=== PATIENT | female | born 1955 | race Caucasian/White ===

== ENCOUNTER 2018-03-24 14:30 | Outpatient (RCR) | payer OTHER, SELFPAY ==
--- NOTE | 2018-02-17 16:54 | PT.OIE ---
Current Diagnoses Unspecified dyspareunia (02/17/18) Past Surgical History History of elective History of tonsillectomy Status post bunionectomy Provider Visit Care Team Role Provider Type Vania Beck Attending Provider Non-Staff Primary Care Provider Specialty: Medical Address: [address] [place], [address] Email: Physical Therapy Initial Evaluation PT-OP-A Visit Information Start: 02/17/18 16:18 Freq: Status: Active Protocol: Document 02/17/18 16:20 [facility] (Rec: 02/17/18 16:31 [facility] [email or web address]) Out-Patient Physical Therapy Visit Information Visit Information Visit Type Initial Evaluation Visit Start Time 15:15 Visit Stop Time 16:00 Total Visit Minutes 45 Visit Number 1 Evaluation Information Evaluation Date 02/17/18 PT-OP-B Current Condition Start: 02/17/18 16:18 Freq: Status: Active Protocol: Document 02/17/18 16:20 [facility] (Rec: 02/17/18 16:31 [facility] [email or web address]) Current Condition History of Current Condition Onset Date 3 years ago Current Complaints pelvic floor pain with intercourse History of Current Condition 62 year old female who began experiencing pain with intercourse 3 years ago. She had never had pain prior to this but feels it came on following menapause. She also started taking vaginal estrogen for vaginal dryness 2 years ago. Johanny notes she can feel tension with intercourse and a feeling that she is guarding her pelvic floor with daily activities. Treatment Goals Patient/Caregiver Goals to reduce pelvic floor pain and tension with intercourse PT-OP-C Subjective Start: 02/17/18 16:18 Freq: Status: Active Protocol: Document 02/17/18 16:20 [facility] (Rec: 02/17/18 16:31 [facility] [email or web address]) Patient Questionnaires Pelvic Pain and Urgency/Frequency Patient Symptom Scale Pelvic Pain Score 15 PT-OP-I Pelvic Floor Start: 02/17/18 16:18 Freq: Status: Active Protocol: Document 02/17/18 16:20 [facility] (Rec: 02/17/18 16:31 [facility] [email or web address]) Pelvic Floor Assessment Urine Pelvic Floor Surgery No Pelvic Clock Pelvic Clock 12-3 Guarding Pelvic Clock 6-9 Guarding SEMG (uV) Baseline 3 Recruitment Pattern Good Relaxation Poor/Slow Holding Good Stability of Hold Good SEMG Stability of Rest Poor/Slow Comments Pelvic Floor Comments elevated resting tone of the pelvic floor musculatre but after 10 reps of contract/ relax of the pelvic floor Johanny was able to relax to baseline PT-OP-J Posture/Palpation/Skin Start: 02/17/18 16:18 Freq: Status: Active Protocol: Document 02/17/18 16:32 ON LICENSE OF [facility] (Rec: 02/17/18 16:52 ON LICENSE OF [facility] [email or web address]) Palpation Assessment Location Two Palpation Location pain to palpation at the proximal pubococcygeus left> Right Palpation Findings Soft Tissue Tightness Spasm Muscle Guarding Tenderness Palpation Details palpable muscle guarding of the proximal pubococcygeus musculature, Johanny dedcribes pain her as the same pain she feels with intercourse One Palpation Location tenderness to palpate over the pubic bone Palpation Findings Tenderness PT-OP-Q Treatments Start: 02/17/18 16:18 Freq: Status: Active Protocol: Document 02/17/18 16:32 ON LICENSE OF [facility] (Rec: 02/17/18 16:52 ON LICENSE OF [facility] [email or web address]) Therapeutic Exercises Supine Exercises 2 Supine Exercise Name pelvic floor contract relax hold 10 seconds and relax 10 seconds Side bilateral Comments EMG biofeedback was used as a treatment tool for relaxed awareness 1 Supine Exercise Name happy baby, piriformis, and kristie pose stretch Side bilateral Self-Care/Home Management Treatment Education Patient Education Home Exercise Program Other Education pt was given a size large dilator to assist with stretching the pelvic floor PT-OP-T Assessment and Plan Start: 02/17/18 16:18 Freq: Status: Active Protocol: Document 02/17/18 16:32 ON LICENSE OF [facility] (Rec: 02/17/18 16:52 ON LICENSE OF [facility] [email or web address]) Physical Therapy Assessment Rehab Potential Rehabilitation Potential Excellent Evaluation Complexity Number of Personal Factors/Comorbidities 0 Number of Body Systems Impaired 1-2 Clinical Presentation at Evaluation Stable Impairments Impairments Pain Soft Tissue Mobility Other Impairments painful intercourse Goals Three Impairment painful intercourse Footwear Sales Representative Goal (LTG) Johanny is able to return to intercourse painfree following relaxed awareness techniques, stretches, and dilator use LTG Duration 6-8 weeks Two Impairment limited intercourse due to pain Short Term Goal (STG) Johanny is able to tolerate stretching for 10 minutes with the size large dilator without c/o pain STG Duration 4 weeks One Impairment tightness of the pubococcygeus musculature Short Term Goal (STG) Johanny is educated in relaxed awarenss of the pelivc floor using stretches and dilator to help relax the pubococcygues musculature STG Duration 4 weeks Assessment Summary Assessment Johanny presents to physical therapy today with a 3 year history of pelvic pain with intercourse. With examination today she is tight and guarded at the anterior attachments of the pubococcygeus L>R. She is also tender to palpation at the pubic bone but I feel this is due to muscle guarding of the adductors and pelvic floor . I started Johanny on EMG biofeedback today for relaxed awareness of her pelvic floor. Initally she was elevated at 3.0 uv but with relaxed awarenss and contract relax she was able to fully relax her pelvic floor. She was given a dilator to begin stretching the pelvic floor at home and stretches to relax her hips. The plan is to have her work on this program for 4 weeks and then check back in should she require manual therapy techniques. Physical Therapy Plan Frequency and Duration Frequency of Treatment recheck in 4 weeks Duration of Treatment 8 weeks Plan of Care Start Date 02/17/18 Plan of Care End Date 04/14/18 Therapeutic Interventions Therapeutic Interventions Home Exercise Program Manual Therapy Patient/Caregiver Education Self-Care/Home Management Soft Tissue Mobilization Therapeutic Exercises Modalities Biofeedback
--- NOTE | 2018-02-17 16:55 | PT.OPPOC ---
Current Diagnoses Unspecified dyspareunia (02/17/18) Provider Visit Care Team Role Provider Type Vania Beck Attending Provider Non-Staff Primary Care Provider Specialty: Medical Address: [address] [place], [address] Email: Plan Of Care PT-OP-T Assessment and Plan Start: 02/17/18 16:18 Freq: Status: Active Protocol: Document 02/17/18 16:32 [facility] (Rec: 02/17/18 16:52 [facility] [email or web address]) Physical Therapy Assessment Rehab Potential Rehabilitation Potential Excellent Evaluation Complexity Number of Personal Factors/Comorbidities 0 Number of Body Systems Impaired 1-2 Clinical Presentation at Evaluation Stable Impairments Impairments Pain Soft Tissue Mobility Other Impairments painful intercourse Goals Three Impairment painful intercourse Laboratory Analyst Goal (LTG) Johanny is able to return to intercourse painfree following relaxed awareness techniques, stretches, and dilator use LTG Duration 6-8 weeks Two Impairment limited intercourse due to pain Short Term Goal (STG) Johanny is able to tolerate stretching for 10 minutes with the size large dilator without c/o pain STG Duration 4 weeks One Impairment tightness of the pubococcygeus musculature Short Term Goal (STG) Johanny is educated in relaxed awarenss of the pelivc floor using stretches and dilator to help relax the pubococcygues musculature STG Duration 4 weeks Assessment Summary Assessment Johanny presents to physical therapy today with a 3 year history of pelvic pain with intercourse. With examination today she is tight and guarded at the anterior attachments of the pubococcygeus L>R. She is also tender to palpation at the pubic bone but I feel this is due to muscle guarding of the adductors and pelvic floor . I started Johanny on EMG biofeedback today for relaxed awareness of her pelvic floor. Initally she was elevated at 3.0 uv but with relaxed awarenss and contract relax she was able to fully relax her pelvic floor. She was given a dilator to begin stretching the pelvic floor at home and stretches to relax her hips. The plan is to have her work on this program for 4 weeks and then check back in should she require manual therapy techniques. Physical Therapy Plan Frequency and Duration Frequency of Treatment recheck in 4 weeks Duration of Treatment 8 weeks Plan of Care Start Date 02/17/18 Plan of Care End Date 04/14/18 Therapeutic Interventions Therapeutic Interventions Home Exercise Program Manual Therapy Patient/Caregiver Education Self-Care/Home Management Soft Tissue Mobilization Therapeutic Exercises Modalities Biofeedback Plan of Care Dates Plan of Care Start Date 02/17/18 Plan of Care End Date 04/14/18 Please Sign and Return: I have reviewed this Plan of Care and certify that the skilled therapy services above are required to meet the patient?s needs. Physician Signature Date Printed Name and Credentials Clinical Instructor Signature Printed Name and Credentials
--- NOTE | 2018-03-24 16:08 | PT.OTRE ---
Current Diagnoses Unspecified dyspareunia (03/24/18) Surgical History History of elective History of tonsillectomy Status post bunionectomy Provider Visit Care Team Role Provider Type Vania Beck Attending Provider Non-Staff Primary Care Provider Specialty: Medical Address: [place] [address], [address] [place] [address] [place], [address] Email: Physical Therapy Re-Evaluation PT-OP-A Visit Information Start: 02/17/18 16:18 Freq: Status: Active Protocol: Document 03/24/18 15:05 [facility] (Rec: 03/24/18 15:15 [facility] [email or web address]) Out-Patient Physical Therapy Visit Information Visit Information Visit Type Re-Evaluation Visit Start Time 14:30 Visit Stop Time 15:05 Total Visit Minutes 35 Visit Number 2 Evaluation Information Evaluation Date 02/17/18 PT-OP-B Current Condition Start: 02/17/18 16:18 Freq: Status: Active Protocol: Document 02/17/18 16:20 [facility] (Rec: 02/17/18 16:31 [facility] [email or web address]) Current Condition History of Current Condition Onset Date 3 years ago Current Complaints pelvic floor pain with intercourse History of Current Condition 62 year old female who began experiencing pain with intercourse 3 years ago. She had never had pain prior to this but feels it came on following menapause. She also started taking vaginal estrogen for vaginal dryness 2 years ago. Johanny notes she can feel tension with intercourse and a feeling that she is guarding her pelvic floor with daily activities. Treatment Goals Patient/Caregiver Goals to reduce pelvic floor pain and tension with intercourse PT-OP-C Subjective Start: 02/17/18 16:18 Freq: Status: Active Protocol: Document 03/24/18 15:05 [facility] (Rec: 03/24/18 15:15 [facility] [email or web address]) OP-PT Subjective Patient Comments Patient Comments Johanny reports her symptoms are much improved and she has been working on her stretching. She has been able to have intercourse without pain. PT-OP-I Pelvic Floor Start: 02/17/18 16:18 Freq: Status: Active Protocol: Document 03/24/18 15:05 [facility] (Rec: 03/24/18 15:15 [facility] [email or web address]) Pelvic Floor Assessment SEMG (uV) Baseline 0 Recruitment Pattern Good Relaxation Fair Holding Good Stability of Hold Good SEMG Stability of Rest Fair Contraction Ability Voluntary Contraction Moderate Voluntary Relaxation Moderate Manual Muscle Testing Left 4 Manual Muscle Testing Right 4 Manual Muscle Testing Anterior 4 Manual Muscle Testing Posterior 4 Muscle Endurance (Seconds) 10 Comments Pelvic Floor Comments pelvic floor is relaxed at rest today with contract relax it does take 10 seconds to fully relax to baseline. No pain with contractions PT-OP-J Posture/Palpation/Skin Start: 02/17/18 16:18 Freq: Status: Active Protocol: Document 03/24/18 15:05 [facility] (Rec: 03/24/18 15:15 [facility] [email or web address]) Palpation Assessment Location Two Palpation Location no pain to palpation now Palpation Details mobility of the levator ani is much improved and I do not note muscle guarding at rest PT-OP-Q Treatments Start: 02/17/18 16:18 Freq: Status: Active Protocol: Document 02/17/18 16:32 [facility] (Rec: 02/17/18 16:52 [facility] [email or web address]) Therapeutic Exercises Supine Exercises 2 Supine Exercise Name pelvic floor contract relax hold 10 seconds and relax 10 seconds Side bilateral Comments EMG biofeedback was used as a treatment tool for relaxed awareness 1 Supine Exercise Name happy baby, piriformis, and kristie pose stretch Side bilateral Self-Care/Home Management Treatment Education Patient Education Home Exercise Program Other Education pt was given a size large dilator to assist with stretching the pelvic floor PT-OP-T Assessment and Plan Start: 02/17/18 16:18 Freq: Status: Active Protocol: Document 03/24/18 15:05 [facility] (Rec: 03/24/18 15:15 [facility] [email or web address]) Physical Therapy Assessment Assessment Summary Assessment Johanny has work with the stretches that were given to her over the past 4 weeks and she has made good amount of progress with relaxed awareness of the pelvic floor. With re-examination today she is able to fully relax her pelvic floor and pain was much diminished. There was a small amount of right sided tenderness only. She feels the biofeedback has really helped her to gain awareness of how tight she was holding her gluteal muscles and pelvic floor at rest. At this point she will continue working on her own. She does have 2 visits scheduled in April should she have any more symptoms. If she continues to note improvement she will cancel those visits. Thank you again for this referral Physical Therapy Plan Frequency and Duration Frequency of Treatment recheck in 4 weeks Duration of Treatment 8 weeks Plan of Care Start Date 03/24/18 Plan of Care End Date 05/12/18 Therapeutic Interventions Therapeutic Interventions Home Exercise Program Manual Therapy Patient/Caregiver Education Self-Care/Home Management Soft Tissue Mobilization Therapeutic Exercises Modalities Biofeedback Next Visit Focus/Plan Next Note Type Treatment Note Next Visit Plan manual therapy treatment if needed for pain, if Johanny is feeling as she is now she will cancel her next appt.
--- NOTE | 2019-01-24 08:38 | PT.OPDS ---
Current Diagnoses Unspecified dyspareunia (03/24/18) Visit Care Team Role Provider Type Vania Beck Attending Provider Non-Staff Primary Care Provider Specialty: Medical Address: [address] [place], [address] Email: Visit Number Visit Number 2 Discharge Summary PT-OP-B Current Condition Start: 02/17/18 16:18 Freq: Status: Active Protocol: Document 02/17/18 16:20 [facility] (Rec: 02/17/18 16:31 [facility] [email or web address]) Current Condition History of Current Condition Onset Date 3 years ago Current Complaints pelvic floor pain with intercourse History of Current Condition 62 year old female who began experiencing pain with intercourse 3 years ago. She had never had pain prior to this but feels it came on following menapause. She also started taking vaginal estrogen for vaginal dryness 2 years ago. Johanny notes she can feel tension with intercourse and a feeling that she is guarding her pelvic floor with daily activities. Treatment Goals Patient/Caregiver Goals to reduce pelvic floor pain and tension with intercourse PT-OP-C Subjective Start: 02/17/18 16:18 Freq: Status: Active Protocol: Document 03/24/18 15:05 [facility] (Rec: 03/24/18 15:15 [facility] [email or web address]) OP-PT Subjective Patient Comments Patient Comments Johanny reports her symptoms are much improved and she has been working on her stretching. She has been able to have intercourse without pain. PT-OP-I Pelvic Floor Start: 02/17/18 16:18 Freq: Status: Active Protocol: Document 03/24/18 15:05 [facility] (Rec: 03/24/18 15:15 [facility] [email or web address]) Pelvic Floor Assessment SEMG (uV) Baseline 0 Recruitment Pattern Good Relaxation Fair Holding Good Stability of Hold Good SEMG Stability of Rest Fair Contraction Ability Voluntary Contraction Moderate Voluntary Relaxation Moderate Manual Muscle Testing Left 4 Manual Muscle Testing Right 4 Manual Muscle Testing Anterior 4 Manual Muscle Testing Posterior 4 Muscle Endurance (Seconds) 10 Comments Pelvic Floor Comments pelvic floor is relaxed at rest today with contract relax it does take 10 seconds to fully relax to baseline. No pain with contractions PT-OP-J Posture/Palpation/Skin Start: 02/17/18 16:18 Freq: Status: Active Protocol: Document 03/24/18 15:05 [facility] (Rec: 03/24/18 15:15 [facility] [email or web address]) Palpation Assessment Location Two Palpation Location no pain to palpation now Palpation Details mobility of the levator ani is much improved and I do not note muscle guarding at rest PT-OP-T Assessment and Plan Start: 02/17/18 16:18 Freq: Status: Active Protocol: Document 01/24/19 08:37 [facility] (Rec: 01/24/19 08:38 [facility] [email or web address]) Physical Therapy Assessment Assessment Summary Assessment Johanny has work with the stretches that were given to her over the past 4 weeks and she has made good amount of progress with relaxed awareness of the pelvic floor. With re-examination today she is able to fully relax her pelvic floor and pain was much diminished. There was a small amount of right sided tenderness only. She feels the biofeedback has really helped her to gain awareness of how tight she was holding her gluteal muscles and pelvic floor at rest. At this point she will continue working on her own. Physical Therapy Plan Discharge Physical Therapy Discharge Reasons Patient Request Discharge Comments Pt felt good about her home exercise program and wanted to work independently. She will be discharged from PT at this time
== END 2019-01-27 12:27 ==
LOC: PHYS 14:30
PROVIDERS: PCP Naturopath; Visit Provider Naturopath
DX: N94.10 Unspecified dyspareunia (principal)
CPT/HCPCS: 97112; 97161; 97164

== ENCOUNTER → 2018-05-13 13:37 | Outpatient (CLI) | payer OTHER, SELFPAY ==
--- NOTE | 2018-05-13 | DI.MG.S_ITS ---
BILATERAL DIGITAL SCREENING MAMMOGRAM 3D/2D WITH CAD: 05/13/2018 CLINICAL: Routine screening. Comparison is made to exams dated: 05/12/2017 mammogram, 03/19/2016 mammogram, and 03/20/2015 mammogram - [facility]. The tissue of both breasts is heterogeneously dense. This may lower the sensitivity of mammography. Current study was also evaluated with a Computer Aided Detection (CAD) system. There are benign calcifications in both breasts. There also is a benign biopsy clip in the left breast. No significant masses, calcifications, or other findings are seen in either breast. There has been no significant interval change. IMPRESSION: There is no mammographic evidence of malignancy. A 1 year screening mammogram is recommended. This exam was interpreted at Station ID: [id number]. NOTE: For mammograms, a report in lay terms will be sent to the patient. Approximately 15% of breast malignancies will not be visualized mammographically. In the management of a palpable breast mass, a negative mammogram must not discourage biopsy of a clinically suspicious lesion. Electronically Signed By: Chriss lo/sabra:05/13/2018 14:20:09 letter sent: Normal Exam ACR BI-RADS Category 2: Benign Finding(s) [id number]
== END ==
PROVIDERS: PCP Naturopath; Visit Provider Naturopath
DX: Z12.31 Encounter for screening mammogram for malignant neoplasm of breast (principal)
CPT/HCPCS: 77063; 77067

== ENCOUNTER → 2018-06-15 09:58 | Outpatient (CLI) | payer OTHER, SELFPAY | PROVIDERS: PCP Naturopath; Visit Provider Naturopath | DX: Z13.820 Encounter for screening for osteoporosis (principal); M85.851 Other specified disorders of bone density and structure, right thigh; Z87.891 Personal history of nicotine dependence | CPT/HCPCS: 77080 ==